=== PATIENT | female | born 1990 | race Caucasian/White ===

== ENCOUNTER 2022-10-23 18:03 | Inpatient (IN) ==
[2022-10-23] MEDS ORDERED: Dinoprostone 10 MG VAG.SUPP VAGINAL ONE (20:12)
[2022-10-23] MEDS ORDERED: Promethazine INJ(RESTRICTED) 25 MG/ML 1 ml VIAL IV PRN (20:12)
[2022-10-23] MEDS ORDERED: ceFAZolin 2 GM in NS PREMIX 2 GM/100 ML BAG IVPB ONE (20:12)
[2022-10-23] MEDS ORDERED: Lactated Ringers 1000 ml BAG 1,000 ML IV ONE (20:12)
[2022-10-23] MEDS ORDERED: Nalbuphine 10 MG/ML 1 ML VIAL IV PRN (20:12)
[2022-10-23] MEDS ORDERED: Buffered Lidocaine 1% SYRIN 1 ml INTRADERM ONE (20:12)
[2022-10-23] MEDS ORDERED: ceFAZolin 2 GM/50 ML BAG IV ONE (20:30)
[2022-10-23 21:20] LABS: ABS Basophils 0.1 10^3/uL (0.0-0.1); ABS Eosinophils 0.1 10^3/uL (0.0-0.5); ABS Lymphocytes 3.4 10^3/uL (1.0-4.8); ABS Monocytes 0.6 10^3/uL (0.0-0.9); ABS Neutrophils 10.5 10^3/uL (1.5-7.6); ABS Nucleated RBC 0.01 10^3/ul; Eosinophil % 0.6 %; Hematocrit 38.5 % (35-45); Hemoglobin 13.4 g/dL (11.5-14.3); Lymphocyte % 23.1 %; Mean Corpuscular Hemoglobin 33.7 pg (27-33); Mean Corpuscular Hgb Conc 34.7 g/dL (31-36); Mean Corpuscular Volume 97.2 fL (80-97); Mean Platelet Volume 8.4 fL (7.5-11.2); Nucleated Red Blood Cells % 0.1 /100 WBC (0.0-0.4); Platelet Count 336 10^3/uL (150-450); Red Blood Count 3.96 10^6/uL (3.63-4.92); Red Cell Distribution Width 14.1 % (12-17); White Blood Count 14.7 10^3/uL (3.8-11.8)
[2022-10-23 21:31] LABS: Urine Appearance Cloudy; Urine Bilirubin Negative (Negative); Urine Blood Negative (Negative); Urine Color Yellow; Urine Glucose Negative (Negative); Urine Ketones Negative (Negative); Urine Nitrite Negative (Negative); Urine Protein Negative (Negative); Urine Specific Gravity 1.016 (1.002-1.030); Urine Urobilinogen Negative (Negative)
[2022-10-23 21:54] LABS: Urine Benzodiazepine Screen None Detected (None Detect); Urine Cannabinoids Screen None Detected (None Detect); Urine Opiates Screen None Detected (None Detect)
[2022-10-24 07:39] LABS: Albumin 3.4 g/dL (3.2-5.2); Calcium 9.3 mg/dL (8.6-10.3); Potassium 3.8 mmol/L (3.5-5.0); Total Bilirubin 0.3 mg/dL (0.2-1.0)
[2022-10-24 07:45] LABS: Albumin/Globulin Ratio 1.3 (1-3); Creatinine, Serum 0.65 mg/dL (0.51-0.95); Globulin 2.7 g/dL (2-4); Total Protein 6.1 g/dL (6.4-8.9); eGFR CKD-EPI 121.4 (>60)
[2022-10-24] MEDS ORDERED: miSOPROStol 100 mcg TAB VAGINAL ONE ×2 (12:06→20:54)
[2022-10-24] MEDS ORDERED: miSOPROStol 100 mcg TAB PO ONE ×3 (14:26→18:34)
[2022-10-25] MEDS ORDERED: miSOPROStol 100 mcg TAB VAGINAL ONE (05:00)
[2022-10-25] MEDS ORDERED: Oxytocin in LR 20,000 MILLI.UNIT/1,000 ML BAG IV SCH (09:15)
[2022-10-25 11:11] LABS: ABS Basophils 0.1 10^3/uL (0.0-0.1); ABS Lymphocytes 2.7 10^3/uL (1.0-4.8); ABS Monocytes 0.7 10^3/uL (0.0-0.9); ABS Nucleated RBC 0.03 10^3/ul; Eosinophil % 0.2 %; Hematocrit 39.7 % (35-45); Hemoglobin 13.9 g/dL (11.5-14.3); Lymphocyte % 16.4 %; Mean Corpuscular Hemoglobin 34.1 pg (27-33); Mean Corpuscular Volume 97.2 fL (80-97); Mean Platelet Volume 8.3 fL (7.5-11.2); Nucleated Red Blood Cells % 0.2 /100 WBC (0.0-0.4); Platelet Count 350 10^3/uL (150-450); Red Blood Count 4.09 10^6/uL (3.63-4.92); White Blood Count 16.5 10^3/uL (3.8-11.8)
[2022-10-25] MEDS: Lactated Ringers 1000 ml BAG 1,000 ML IV SCH ×2 (16:05)
[2022-10-25] MEDS ORDERED: Heparin 5000 UNITS/ML 1 mL VIAL SUBCUT ONE (19:32)
[2022-10-25] MEDS ORDERED: ceFOXitin 2 GM IVPREMIX 2 GM/50 ML BAG IVPB ONE (19:32)
[2022-10-25] MEDS ORDERED: Sodium Citrate/Citric Acid LIQ 15 ML UDC PO ONE ×2 (19:33→19:43)
[2022-10-25] MEDS ORDERED: Lactated Ringers 1000 ml BAG 1,000 ML IV SCH ×2 (20:00→23:00)
[2022-10-25] MEDS ORDERED: Oxytocin 10 UNITS/ML 1 ML VIAL ONE (20:48)
[2022-10-25] MEDS ORDERED: Bupivacaine 0.5% SDV PF 30ML VIAL ONE (20:48)
[2022-10-25] MEDS ORDERED: Morphine PF AMP (0.5MG/ML) 5 MG/10 ML AMP ONE (20:50)
[2022-10-25] MEDS ORDERED: Phenylephrine 40 mcg/mL 10mL (400mcg) SYRINGE ONE (21:40)
[2022-10-25] MEDS ORDERED: Ondansetron 4 mg VIAL 2 MG/ML 2 ml VIAL ONE (21:51)
[2022-10-25] MEDS ORDERED: fentaNYL 100 mcg/2 ml 50 MCG/ML VIAL ONE (21:51)
[2022-10-25] MEDS ORDERED: Dexamethasone IV 4 MG/ML VIAL 1 ml VIAL ONE (21:52)
[2022-10-25] MEDS ORDERED: Acetaminophen IV 1 GM/100ML 1,000 MG/100 ML BAG IV ONE (21:53)
[2022-10-25] MEDS ORDERED: Lidocaine 2% PF 5 ML VIAL ONE (21:56)
[2022-10-25] MEDS ORDERED: Propofol 10 MG/ML 20 ML BTL ONE (22:02)
[2022-10-25 22:52] LABS: Urine Color Yellow
[2022-10-25 22:53] LABS: Urine Appearance Clear; Urine Bilirubin Negative (Negative); Urine Blood Negative (Negative); Urine Glucose Negative (Negative); Urine Ketones 1+ (15mg/dL) (Negative); Urine Nitrite Negative (Negative); Urine Protein Negative (Negative); Urine Specific Gravity 1.019 (1.005-1.030); Urine Urobilinogen 0.2 (Negative) (Negative)
[2022-10-25] MEDS ORDERED: Dibucaine 1% OINT 28.35 GM TUBE PR PRN (22:56)
[2022-10-25] MEDS ORDERED: Witch Hazel PAD JAR TOPICAL PRN (22:56)
[2022-10-25] MEDS ORDERED: Glycerin ADULT 2.4 gm SUPP PR PRN (22:56)
[2022-10-25] MEDS ORDERED: Naloxone 0.4 mg VIAL 0.4 mg/ml 1 ml VIAL IV PRN (22:57)
[2022-10-25] MEDS ORDERED: Acetaminophen IV 1 GM/100ML 1,000 MG/100 ML BAG IV PRN (22:57)
[2022-10-25] MEDS ORDERED: Ondansetron 4 mg VIAL 2 MG/ML 2 ml VIAL IV PRN (22:57)
[2022-10-25] MEDS ORDERED: Naloxone 0.4 mg VIAL 0.4 mg/ml 1 ml VIAL IV PUSH PRN (22:57)
[2022-10-26 00:08] LABS: Creatinine, Serum 0.63 mg/dL (0.51-0.95); eGFR CKD-EPI 122.3 (>60)
[2022-10-26] MEDS: Oxytocin in LR 20,000 MILLI.UNIT/1,000 ML BAG IV SCH ×2 (02:12→06:13)
[2022-10-26 05:40] LABS: ABS Basophils 0.1 10^3/uL (0.0-0.1); ABS Monocytes 0.7 10^3/uL (0.0-0.9); ABS Neutrophils 17.3 10^3/uL (1.5-7.6); Lymphocyte % 9.9 %; Mean Corpuscular Hemoglobin 33.9 pg (27-33); Mean Corpuscular Hgb Conc 35.3 g/dL (31-36); Mean Platelet Volume 8.3 fL (7.5-11.2); Platelet Count 322 10^3/uL (150-450); Red Blood Count 3.54 10^6/uL (3.63-4.92); White Blood Count 20.1 10^3/uL (3.8-11.8)
[2022-10-26 07:09] LABS: Activated Partial Thrombo Time 17.8 seconds (26.0-38.0)
[2022-10-26] MEDS: Heparin 5000 UNITS/ML 1 mL VIAL SUBCUT SCH ×2 (09:18→20:03)
[2022-10-27] MEDS: Heparin 5000 UNITS/ML 1 mL VIAL SUBCUT SCH ×2 (09:23→20:10)
[2022-10-28 07:45] VITALS: BP 126/78
[2022-10-28] MEDS ORDERED: Enoxaparin 60 MG/0.6 ML SYR SUBCUT SCH (09:00)
== END 2022-10-28 15:25 | disposition home or self-care (01) | DRG 540 ==
LOC: MCHOBOUT 18:03 → MCHOB 20:20
PROVIDERS: ADMIT Obstetrics & Gynecology; ATTEND Obstetrics & Gynecology